=== PATIENT | male | born 1955 | race Caucasian/White ===

== ENCOUNTER → 2018-10-26 | Outpatient (CLI) | payer BC ==
[2015-12-23 14:48] VITALS: BP 138/74
[~2018-10-26] MED LIST: RANI150T2 PO
--- NOTE | 2018-10-26 17:00 | KCIC ---
MRI right shoulder without contrast dated 10/26/2018. No comparison available. CLINICAL INDICATION: Right shoulder pain. TECHNIQUE: Routine multiplanar multisequence MR imaging was performed. FINDINGS: Intermediate T2 signal throughout the supraspinatus and infraspinatus portions of the rotator cuff. Moderate to high-grade articular surface partial tear of the anterior supraspinatus footplate involves 70-80% cuff thickness with a few thin bursal surface fibers that remain attached. There is retraction of undersurface fibers to about the 12:00 position. There is also a small high-grade partial tear versus pinhole full-thickness tear of the central supraspinatus tendon near the critical zone (best seen on series 8 image 8). Subscapularis is thickened and of intermediate signal but otherwise intact. There is increased signal within the substance of the long head biceps tendon proximally. Extra articular portion courses within the bicipital groove. Mild hypertrophic change of the glenohumeral joint. Blunted morphology of the anterior and posterior labrum. There is a small linear defect undermining the biceps anchor and posterior superior labrum consistent with SLAP tear. Mild thinning of the glenoid articular cartilage. Moderate hypertrophic change of the AC joint. There is undersurface spurring of the distal clavicle and acromion. Small subacromial/subdeltoid bursal effusion. Suprascapular and spinoglenoid notches are clear. No significant muscle edema or muscle atrophy. IMPRESSION: 1. Moderate to severe rotator cuff tendinopathy. There is a high-grade articular surface partial tear of the anterior supraspinatus footplate with retraction of undersurface fibers to the 12:00 position. There is also a high-grade partial tear versus pinhole full-thickness tear of the central supraspinatus near the critical zone. 2. Moderate AC joint arthropathy with undersurface spurring of the acromium and distal clavicle. Small subacromial/subdeltoid bursal effusion. 3. Moderate to severe biceps tendinosis. 4. Mild degenerative arthrosis and chondral malacia the glenohumeral joint. Small joint effusion. 4. SLAP tear of the posterior superior labrum. Electronically signed by: Marquez Bejarano MD (10/26/2018 4:55 PM) [id number]
== END | disposition home or self-care (01) ==
LOC: KCIC MRI 15:34
PROVIDERS: ATTEND Orthopaedic Surgery
DX: S43.431A Superior glenoid labrum lesion of right shoulder, initial encounter (principal); M75.101 Unspecified rotator cuff tear or rupture of right shoulder, not specified as traumatic; M25.411 Effusion, right shoulder; M19.011 Primary osteoarthritis, right shoulder; M75.81 Other shoulder lesions, right shoulder; X58.XXXA Exposure to other specified factors, initial encounter; Y93.89 Activity, other specified; Y92.89 Other specified places as the place of occurrence of the external cause; Y99.8 Other external cause status
CPT/HCPCS: 73221

== ENCOUNTER → 2019-04-01 | Outpatient (CLI) | payer BC ==
[2015-12-23 14:48] VITALS: BP 138/74
--- NOTE | 2019-04-01 15:29 | RAD ---
Thyroid ultrasound HISTORY: 1 cm right thyroid nodule. COMPARISON: None FINDINGS: Right lobe measures 4.6 x 1.7 x 1.7 cm. Solid nodule in the right thyroid superiorly measuring 10 x 8 x 7 mm. Mild vascularity within this nodule. Thyroid isthmus measures 4 mm Left thyroid measures 4.2 x 1.5 x 1.8 cm. Cyst in the inferior left thyroid measuring 8 x 6 x 7 mm. IMPRESSION: Solid 10 mm nodule in the right thyroid with internal vascularity. Electronically signed by: Marquez Stoner MD (04/01/2019 3:26 PM) [id number]
== END | disposition home or self-care (01) ==
LOC: US 15:38
PROVIDERS: ATTEND Internal Medicine
DX: E04.1 Nontoxic single thyroid nodule (principal)
CPT/HCPCS: 76536

== ENCOUNTER → 2019-04-16 | Outpatient (CLI) | payer BC ==
[2015-12-23 14:48] VITALS: BP 138/74
--- NOTE | 2019-04-16 14:51 | RAD ---
CLINICAL HISTORY: Right thyroid nodule, FNA COMPARISON: Thyroid ultrasound 04/01/2019 PROCEDURE: Preliminary sonographic images of the thyroid gland were obtained. The procedure and risks of ultrasound guided aspiration were explained to the patient and informed written consent obtained. Laterality was confirmed. The site of aspiration was marked. Timeout was performed. Using standard sterile technique, 4 25 G fine needle aspirations and 1 aspiration with the Rotex needle of the right thyroid nodule were obtained. There were no immediate complications. Estimated blood loss: 0 minutes Performing physician: Salvatore Banuelos M.D. IMPRESSION: Successful FNA of the right thyroid nodule without immediate complication. Electronically signed by: Salvatore Banuelos MD (04/16/2019 2:48 PM) [facility]
--- NOTE | 2019-04-25 15:07 | PATHOLOGY ---
Note [facility] Accession Number: [id number] TESTS RESULT FLAG UNITS REF RANGE LAB Clinician Provided Cytology Information No. of containers..01 Other (Miscellaneous) Source: RIGHT THYROID DIAGNOSIS: RIGHT THYROID INCONCLUSIVE. BETHESDA CATEGORY III. FOLLICULAR LESION OF UNDETERMINED SIGNIFICANCE. SPECIMEN CONSISTS OF ABUNDANT FOLLICULAR CELLS WITH SCANT COLLOID. THE DIFFERENTIAL DIAGNOSIS INCLUDES CELLULAR ADENOMATOID NODULE AND FOLLICULAR NEOPLASM. THIS INTERPRETATION INCLUDES EVALUATION OF A CELL BLOCK. Pathologist ICD10: 02 R89.6 Signed out by: Uzair Fisher MD, Pathologist NPI- [id number] Performed by: Rudy Hoyos, Health Plan Advisor ([facility]) Gross description: 01 30ML, PINK, CLOUDY /LCS FLAG LEGEND: L-Low Normal,H-High Normal,LL-Alert Low,HH-Alert High <-Panic Low,>-Panic High,A-Abnormal,AA-Critical Abnormal Performed at: [facility] [address] [place] [address] Sang Mack MD, [address] [facility] [address] [place] [address] Uzair Fisher MD, Specimen Comment: A courtesy copy of this report has been sent to Specimen Comment: [phone]. Specimen Comment: Report sent to Specimen Comment: A duplicate report has been generated due to demographic updates. Performed at: 01 [facility] [address], [place], [place] [id number] MD Sang Mack MD Phone: [phone]
== END | disposition home or self-care (01) ==
LOC: US 12:19
PROVIDERS: ATTEND Internal Medicine
DX: E04.1 Nontoxic single thyroid nodule (principal)
CPT/HCPCS: 10005; 76942; 88173; 88305

== ENCOUNTER 2020-05-09 17:02 | Emergency (ER) | payer BC, MEDICARE ==
[~2020-05-09] VITALS: Ht 172.7 cm; Wt 77.0 kg
[2020-05-09 17:09] VITALS: BP 142/79
[2020-05-09] MEDS ORDERED: DIPH,PERTUSS(ACELL),TET VAC/PF 0.5 ML SYRINGE. VAX IM ONE (17:30)
[2020-05-09] MEDS ORDERED: predniSONE 10 MG TABLET PO ONE (17:30)
[2020-05-09] MEDS ORDERED: PRED50TA PO (17:42)
--- NOTE | 2020-05-09 17:42 | PHYS DOC ---
Past Medical History Past Medical History: Hypertension Past Surgical History: Other Additional Past Surgical Histo: heart cath, cyst removal Smoking Status: Never Smoker Alcohol Use: Occasionally Drug Use: None General Adult EDM: Chief Complaint: INSECT BITE HPI: HPI: Patient is a 64 year old male, accompanied by his , who presents to the emergency department with complaints of a sting to his left thumb from a wasp. Patient states the incident happened last night. He reports that the area has since turned red become tender to touch, warm, and very swollen. He denies any numbness, tingling, or decreased movement of the affected hand. He reports his last tetanus shot was over 10 years ago. The patient currently rates his pain a 5/10 on the pain scale, he denies any alleviating factors. Patient states he has tried applying baking soda paste to the site with no reduction in his symptoms. He denies any chest pain, shortness of breath, nausea, vomiting, wheezing, or difficulty swallowing. Review of Systems: Review of Systems: Constitutional: Denies fever or chills. [] HENT: Denies nasal congestion or sore throat. [] Respiratory: Denies cough or shortness of breath. [] Cardiovascular: Denies chest pain or edema. [] GI: Denies nausea, or vomiting Musculoskeletal: Denies back pain or joint pain. [] Integument: See HPI Neurologic: Denies headache, focal weakness or sensory changes. [] Psychiatric: Denies depression or anxiety. [] Heart Score: Risk Factors: Risk Factors: DM, Current or recent (<one month) smoker, HTN, HLP, family history of CAD, obesity. Risk Scores: Score 0 - 3: 2.5% MACE over next 6 weeks - Discharge Home Score 4 - 6: 20.3% MACE over next 6 weeks - Admit for Clinical Observation Score 7 - 10: 72.7% MACE over next 6 weeks - Early Invasive Strategies Current Medications: Current Medications Medications (Trade) Dose Ordered Sig/Marquita Start Time Stop Time Status Last Admin Dose Admin Diphtheria/ Tetanus/Acell Pertussis (ADACEL TDap SYRINGE) 0.5 ml ONCE ONCE 05/09/20 17:30 05/09/20 17:31 UNV Allergies: Allergies: Allergies Coded Allergies Type Severity Reaction Last Updated Verified No Known Drug Allergies 08/29/15 No Physical Exam: PE: Constitutional: Well developed, well nourished, no acute distress, non-toxic appearance. [] HENT: Normocephalic, atraumatic, bilateral external ears normal, nose normal. [] Eyes: PERRLA, EOMI, conjunctiva normal, no discharge. [] Neck: Normal range of motion, no stridor. [] Cardiovascular:Heart rate regular rhythm Lungs & Thorax: Respirations even and unlabored, no retractions, no respiratory distress Skin: Warm, dry; 1+ edema to dorsal surface of left thumb and L hand proximal to thumb with erythema and warmth, no drainage, no streaking up the arm, consist ent with allergic reaction to insect sting Extremities: No cyanosis, ROM intact, no edema. [] Neurologic: Alert and oriented X 3, no focal deficits noted. [] Psychologic: Affect normal, judgement normal, mood normal. [] Current Patient Data: Vital Signs: Vital Signs Date Time Temp Pulse Resp B/P (MAP) Pulse Ox O2 Delivery O2 Flow Rate FiO2 05/09/20 17:09 98.4 78 16 142/79 (100) 99 Room Air 98.4 EKG: EKG: [] Radiology/Procedures: Radiology/Procedures: [] Course & Med Decision Making: Course & Med Decision Making Pertinent Labs and Imaging studies reviewed. (See chart for details) [] Dragon Disclaimer: Dragon Disclaimer: This electronic medical record was generated, in whole or in part, using a voice recognition dictation system. Departure Departure Impression: Primary Impression: Sting from hornet, wasp, or bee Qualified Codes: T63.453A - Toxic effect of venom of hornets, assault, initial encounter; T63.443A - Toxic effect of venom of bees, assault, initial encounter; T63.463A - Toxic effect of venom of wasps, assault, initial encounter Additional Impression: Need for Tdap vaccination Disposition: 01 HOME, SELF-CARE Condition: STABLE Referrals: JANE ASHRAF MD (PCP) Patient Instructions: Bee, Wasp, or Hornet Sting Additional Instructions: Fill the prescription and use as directed. Apply ice packs to the swollen area as needed for comfort. Take an [id number] antihistamine daily. Tylenol or ibuprofen as needed for pain. Follow up with Dr. Ashraf next week, return to the ER if symptoms worsen or you develop a fever. Scripts Prednisone (PREDNISONE) 50 Mg Tablet 1 TAB PO DAILY for 4 Days, #4 TAB 0 Refills begin taking on 05/10/20, first dose was given in the ER Prov: DOLORES CARR APRN 05/09/20 Justicifation of Admission Dx: Justifications for Admission: Justification of Admission Dx: N/A DOLORES CARR APRN May 09, 2020 17:42
== END 2020-05-09 17:48 | disposition home or self-care (01) ==
LOC: ER 17:02
DX: T63.45 Toxic effect of venom of hornets (principal); T63.443A Toxic effect of venom of bees, assault, initial encounter; T63.463A Toxic effect of venom of wasps, assault, initial encounter; R60.0 Localized edema; I10 Essential (primary) hypertension; Z98.890 Other specified postprocedural states; Y92.89 Other specified places as the place of occurrence of the external cause
CPT/HCPCS: 90471; 90715; 99283; J7512

== ENCOUNTER 2020-08-11 13:34 | Emergency (ER) | payer MEDICARE ==
[~2020-08-11] VITALS: Ht 175.3 cm; Wt 79.0 kg
[~2020-08-11 13:34] MED LIST changes: +PRED50TA PO
[2020-08-11 14:28] LABS: BASO % 1 % (0-3); EOS # 0.1 x10^3/uL (0.0-0.7); EOS % 1 % (0-3); HEMATOCRIT 41.8 % (39.0-53.0); HEMOGLOBIN 14.5 g/dL (13.0-17.5); LYMPH % 22 % (24-48); MEAN CORPUSCULAR HEMOGLOBIN 31 pg (25-35); MEAN CORPUSCULAR HGB CONC 35 g/dL (31-37); MEAN CORPUSCULAR VOLUME 90 fL (79-100); MONO # 0.5 x10^3/uL (0.0-1.1); MONO % 10 % (0-9); NEUT # 3.1 x10^3/uL (1.8-7.7); NEUT % 66 % (31-73); PLATELET COUNT 227 x10^3/uL (140-400); RED BLOOD COUNT 4.67 x10^6/uL (4.30-5.70); RED CELL DISTRIBUTION WIDTH 12.6 % (11.5-14.5); WHITE BLOOD COUNT 4.6 x10^3/uL (4.0-11.0)
[2020-08-11 14:44] LABS: CALCIUM 8.8 mg/dL (8.5-10.1); GFR 74.8; POTASSIUM 4.3 mmol/L (3.5-5.1)
[2020-08-11 14:50] LABS: ALBUMIN 4.5 g/dL (3.4-5.0); ALBUMIN/GLOBULIN RATIO 1.6 (1.0-1.7); MAGNESIUM 2.4 mg/dL (1.8-2.4); TOTAL BILIRUBIN 0.4 mg/dL (0.2-1.0); TOTAL PROTEIN 7.4 g/dL (6.4-8.2)
--- NOTE | 2020-08-11 14:54 | RAD ---
INDICATION: Reason: near syncope, dizzy / Spl. Instructions: / History: COMPARISON: June 2009 TECHNIQUE: Axial CT images obtained through the head without intravenous contrast. One or more of the following individualized dose reduction techniques were utilized for this examination: 1. Automated exposure control; 2. Adjustment of the mA and/or kV according to patient size; 3. Use of iterative reconstruction technique. FINDINGS: No intracranial hemorrhage. No midline shift. Basal cisterns patents. Ventricles and sulci are globally prominent. No acute osseous abnormality. Orbits and paranasal sinuses unremarkable. Scattered foci of low attenuation within the white matter. IMPRESSION: 1. No acute intracranial hemorrhage. 2. Scattered regions of low attenuation within the white matter. Non-specific in nature but frequently secondary to chronic small vessel ischemic disease. 3. Prominence of ventricles and sulci which is frequently secondary to age related volume loss. Electronically signed by: Gil Shaffer MD (08/11/2020 2:51 PM) [id number]
--- NOTE | 2020-08-11 15:18 | ED.ADGEN ---
Past Medical History Past Medical History: Hypertension, Hyperthyroid Past Surgical History: Other Additional Past Surgical Histo: THYROIDECTOMY-PARTIAL Smoking Status: Never Smoker Alcohol Use: Occasionally Drug Use: None General Adult EDM: Chief Complaint: NEURO SYMPTOMS/DEFICITS HPI: HPI: Patient is a 64 year old male, accompanied by his , who presents to the emergency room with reports of an episode of blurry vision with a numb sensation in his bilateral lower jaw while talking to his brother today. Patient reports that he had a headache at that time also. He denies any difficulty speaking, dysphagia, chest pain, palpitations, dizziness, ringing in his ears, weakness, fever, cough, or shortness of breath. He denies any nausea, vomiting, diarrhea, or abdominal pain. He currently denies any symptoms or complaints. Review of Systems: Review of Systems: Complete ROS is negative unless otherwise noted in HPI. Current Medications: Current Medications Medications (Trade) Dose Ordered Sig/Marquita Start Time Stop Time Status Last Admin Dose Admin Aspirin (Franco Aspirin) 325 mg 1X ONCE 08/11/20 15:45 08/11/20 15:46 DC 08/11/20 15:50 325 MG Allergies: Allergies: Allergies Coded Allergies Type Severity Reaction Last Updated Verified No Known Drug Allergies 08/29/15 No Physical Exam: PE: See Above Constitutional: Well developed, well nourished, no acute distress, non-toxic appearance. [] HENT: Normocephalic, atraumatic, bilateral external ears normal, nose normal. [] Eyes: PERRLA, EOMI, conjunctiva normal, no discharge. [] Neck: Normal range of motion, no stridor. [] Cardiovascular:Heart rate regular rhythm Lungs & Thorax: Respirations even and unlabored, no retractions, no respiratory distress Skin: Warm, dry, no erythema, no rash. [] Extremities: No cyanosis, no clubbing, ROM intact, no edema. [] Neurologic: Alert and oriented X 3, normal motor function, normal sensory function, no focal deficits noted. [] Psychologic: Affect normal, judgement normal, mood normal. [] Current Patient Data: Labs: Laboratory Tests Test 08/11/20 13:50 White Blood Count 4.6 x10^3/uL (4.0-11.0) Red Blood Count 4.67 x10^6/uL (4.30-5.70) Hemoglobin 14.5 g/dL (13.0-17.5) Hematocrit 41.8 % (39.0-53.0) Mean Corpuscular Volume 90 fL (79-100) Mean Corpuscular Hemoglobin 31 pg (25-35) Mean Corpuscular Hemoglobin Concent 35 g/dL (31-37) Red Cell Distribution Width 12.6 % (11.5-14.5) Platelet Count 227 x10^3/uL (140-400) Neutrophils (%) (Auto) 66 % (31-73) Lymphocytes (%) (Auto) 22 % (24-48) L Monocytes (%) (Auto) 10 % (0-9) H Eosinophils (%) (Auto) 1 % (0-3) Basophils (%) (Auto) 1 % (0-3) Neutrophils # (Auto) 3.1 x10^3/uL (1.8-7.7) Lymphocytes # (Auto) 1.0 x10^3/uL (1.0-4.8) Monocytes # (Auto) 0.5 x10^3/uL (0.0-1.1) Eosinophils # (Auto) 0.1 x10^3/uL (0.0-0.7) Basophils # (Auto) 0.0 x10^3/uL (0.0-0.2) Sodium Level 133 mmol/L (136-145) L Potassium Level 4.3 mmol/L (3.5-5.1) Chloride Level 99 mmol/L (98-107) Carbon Dioxide Level 28 mmol/L (21-32) Anion Gap 6 (6-14) Blood Urea Nitrogen 17 mg/dL (8-26) Creatinine 1.0 mg/dL (0.7-1.3) Estimated GFR (Cockcroft-Gault) 74.8 BUN/Creatinine Ratio 17 (6-20) Glucose Level 132 mg/dL (70-99) H Calcium Level 8.8 mg/dL (8.5-10.1) Magnesium Level 2.4 mg/dL (1.8-2.4) Total Bilirubin 0.4 mg/dL (0.2-1.0) Aspartate Amino Transferase (AST) 20 U/L (15-37) Alanine Aminotransferase (ALT) 25 U/L (16-63) Alkaline Phosphatase 68 U/L (46-116) Troponin I Quantitative < 0.017 ng/mL (0.000-0.055) Total Protein 7.4 g/dL (6.4-8.2) Albumin 4.5 g/dL (3.4-5.0) Albumin/Globulin Ratio 1.6 (1.0-1.7) Laboratory Tests 08/11/20 13:50 Laboratory Tests 08/11/20 13:50 Vital Signs: Vital Signs Date Time Temp Pulse Resp B/P (MAP) Pulse Ox O2 Delivery O2 Flow Rate FiO2 08/11/20 15:30 70 14 134/70 (91) 98 08/11/20 13:56 97.6 Room Air 97.6 EKG: EK-sinus rhythm, rate 77, leftward axis with prolonged AR interval, no STEMI read by Dr. Mendoza. [] Heart Score: Risk Factors: Risk Factors: DM, Current or recent (<one month) smoker, HTN, HLP, family history of CAD, obesity. Risk Scores: Score 0 - 3: 2.5% MACE over next 6 weeks - Discharge Home Score 4 - 6: 20.3% MACE over next 6 weeks - Admit for Clinical Observation Score 7 - 10: 72.7% MACE over next 6 weeks - Early Invasive Strategies Radiology/Procedures: Radiology/Procedures: PROCEDURE: CT HEAD WO CONTRAST INDICATION: Reason: near syncope, dizzy / Spl. Instructions: / History: COMPARISON: June 2009 TECHNIQUE: Axial CT images obtained through the head without intravenous contrast. One or more of the following individualized dose reduction techniques were utilized for this examination: 1. Automated exposure control; 2. Adjustment of the mA and/or kV according to patient size; 3. Use of iterative reconstruction technique. FINDINGS: No intracranial hemorrhage. No midline shift. Basal cisterns patents. Ventricles and sulci are globally prominent. No acute osseous abnormality. Orbits and paranasal sinuses unremarkable. Scattered foci of low attenuation within the white matter. IMPRESSION: 1. No acute intracranial hemorrhage. 2. Scattered regions of low attenuation within the white matter. Non-specific in nature but frequently secondary to chronic small vessel ischemic disease. 3. Prominence of ventricles and sulci which is frequently secondary to age related volume loss. [] Course & Med Decision Making: Course & Med Decision Making Pertinent Labs and Imaging studies reviewed. (See chart for details) 64-year-old male presented to the emergency room with complaints of a episode of blurred vision and numbness in his lower jaw. Patient denied any complaints upon my exam. A CT of his head revealed no acute findings. His vital signs were stable throughout his stay. I advised the patient that he may have had TIA, I offered him admission to the hospital for further evaluation. Patient declined admission at this time. I encouraged him to take a daily 325 mg aspirin and to follow-up with his primary care Dr. Ashraf, and neurology, Dr. Kan's information was provided. I instructed him to return to the emergency room if his symptoms returned or worsened. Patient was given 325 mg of aspirin while in the emergency department. Patient verbalized an understanding of home care, medications, follow-up, and return to ED instructions and was in agreement with the plan of care. I spoke with Dr. Mendoza about the patient and he was in agreement with my plan of care and disposition. [] Dragon Disclaimer: Dragon Disclaimer: This electronic medical record was generated, in whole or in part, using a voice recognition dictation system. Departure Departure Impression: Primary Impression: TIA (transient ischemic attack) Disposition: 01 DC HOME SELF CARE/HOMELESS Condition: STABLE Referrals: JANE ASHRAF MD (PCP) ABIODUN CHRISTIANSON MD Patient Instructions: Transient Ischemic Attack, [id number] Additional Instructions: Take a 325 mg [address] daily. [address] Dr. Ashraf's office to schedule follow up appointment. I have provided the phone number for our neurologist for follow up also. Return to the ER if symptoms worsen. Attending Signature Attending Signature I have reviewed the PA/BARROW WORKER HELPER's note and plan of care. I was available for consultation as needed during the patient's visit in the emergency department. I agree with the clinical impression, plan, and disposition. DOLORES CARR APRN Aug 11, 2020 15:18 JANE MENDOZA DO Aug 11, 2020 20:17
[2020-08-11 15:30] VITALS: BP 134/70
[2020-08-11] MEDS ORDERED: ASPIRIN 325 MG TABLET PO ONE (15:45)
== END 2020-08-11 15:52 | disposition home or self-care (01) ==
LOC: ER 13:34
DX: G45.9 Transient cerebral ischemic attack, unspecified (principal); H53.8 Other visual disturbances; R20.2 Paresthesia of skin; I10 Essential (primary) hypertension; E05.90 Thyrotoxicosis, unspecified without thyrotoxic crisis or storm; Z90.89 Acquired absence of other organs; Z98.890 Other specified postprocedural states
CPT/HCPCS: 36415; 70450; 80053; 83735; 84484; 85025; 93005; 99285

== ENCOUNTER → 2020-09-03 | Outpatient (CLI) | payer MEDICARE ==
[2020-08-11 15:30] VITALS: BP 134/70
--- NOTE | 2020-09-03 13:05 | RAD ---
US DPLX CAROTID BILAT History: Reason: TIA / Spl. Instructions: / History: Multiple grayscale, color, and duplex spectral analysis waveform sonographic images were acquired of the carotid, subclavian, and vertebral arteries. Comparison: None Findings: RIGHT SIDE: Peak systolic flow velocity of the distal CCA is 83 cm/sec. Peak systolic flow velocity of the ICA is 92 cm/sec. The ICA/CCA ratio is 1.1. Peak end diastolic flow velocity of the ICA is 25 cm/sec. The peak systolic velocity of the ECA is 121 cm/sec. LEFT SIDE: Peak systolic flow velocity of the distal CCA is 86 cm/sec. Peak systolic flow velocity of the ICA is 83 cm/sec. The ICA/CCA ratio is 1.0. Peak end diastolic flow velocity of the ICA is 28 cm/sec. Peak systolic flow velocity of the ECA is 135 cm/sec. Vertebral arteries: Bilateral vertebral arteries demonstrate antegrade flow. Impression: There is no evidence of a hemodynamically significant stenosis. PQRS Compliance Statement - Stenosis calculations for carotid ultrasound studies are derived from bethel idated velocity criteria which are known to correlate with the NASCET methodology. Electronically signed by: Thiago Aucna MD (09/03/2020 1:03 PM) [id number]
== END ==
LOC: US 12:04
PROVIDERS: ATTEND Internal Medicine
DX: R20.0 Anesthesia of skin (principal); G45.9 Transient cerebral ischemic attack, unspecified
CPT/HCPCS: 93880

== ENCOUNTER → 2020-10-07 | Outpatient (CLI) | payer MEDICARE ==
[~2020-10-07] MED LIST changes: +AMLO-186 PO; +LEVO75TA5 PO; +MAG30ORA2 PO; +PANT40TA77 PO
--- NOTE | 2020-10-08 00:01 | RAD ---
CLINICAL HISTORY: Reason: Renal Insufficiency; Concern for Hydronephrosis / Spl. Instructions: / His tory: COMPARISON: None available. TECHNIQUE: Ultrasound examination of the bilateral kidneys and urinary bladder was performed. FINDINGS: The right kidney measures 10.3 cm in bipolar length. The renal cortex is normal in thickness. Renal e chogenicity is normal. There is no evidence for hydronephrosis, shadowing renal calculus or focal ab normality . The left kidney measures 11.6 cm in bipolar length. The renal cortex is normal in thickness. Renal ec hogenicity is normal. There is no evidence for hydronephrosis, shadowing renal calculus or focal abno rmality. Images of the partially filled urinary bladder are unremarkable. IMPRESSION: Normal sonographic survey of the kidneys and bladder. Electronically signed by: Salvatore Banuelos MD (10/07/2020 11:58 PM) [id number]
== END ==
LOC: US 13:45
PROVIDERS: ATTEND Internal Medicine
DX: N28.9 Disorder of kidney and ureter, unspecified (principal); N13.30 Unspecified hydronephrosis
CPT/HCPCS: 76770